=== PATIENT | female | born 1980 | race Caucasian/White ===

== ENCOUNTER 2016-07-19 15:57 | Emergency (ER) | payer MEDICARE ==
[2016-07-19 17:11] LABS: HEMOGLOBIN 14.4 gm/dl (12.3-15.3); RED BLOOD COUNT 5.01 M/UL (4.00-5.10); WHITE BLOOD COUNT 9.3 K/UL (4.5-11.0)
[2016-07-19 17:32] LABS: BUN/CREATININE RATIO 13 (0-10)
== END 2016-07-19 21:38 | disposition home or self-care (01) ==
LOC: ER1 15:57
PROVIDERS: Emergency Medicine
DX: S60.222A Contusion of left hand, initial encounter (principal); S60.512A Abrasion of left hand, initial encounter; S80.12XA Contusion of left lower leg, initial encounter; S30.1XXA Contusion of abdominal wall, initial encounter; S50.01XA Contusion of right elbow, initial encounter; S20.219A Contusion of unspecified front wall of thorax, initial encounter; F17.200 Nicotine dependence, unspecified, uncomplicated; V49.40XA Driver injured in collision with unspecified motor vehicles in traffic accident, initial encounter
CPT/HCPCS: 36415; 70450; 71260; 72070; 72100; 72125; 73080; 73130; 73552; 73564; 73590; 80053; 80307; 81001; 84703; 85025; 99284; J7050; Q9962

== ENCOUNTER 2020-06-15 15:38 | Emergency (ER) | payer OTHER ==
[~2020-06-15 15:38] MED LIST: ASPIRIN CHEWABL81 MG PO; PREDNISONE50 MG PO; TESSALON PERLE100 MG PO; VENTOLIN HFA 66.7 GM INH
== END 2020-06-15 17:00 | disposition left against medical advice (07) ==
LOC: ER1 15:38
DX: Z53.21 Procedure and treatment not carried out due to patient leaving prior to being seen by health care provider (principal)